=== PATIENT | male | born 1965 | race Caucasian/White ===

== ENCOUNTER 2018-08-12 10:04 | Day surgery (SDC) | payer OTHER ==
[~2018-08-12 10:04] MED LIST: COZAAR100 MG; FORTAMET1000 MG
[2018-08-12] MEDS ORDERED: DICLOFENAC SODI75 MG PO (12:59)
== END 2018-08-12 14:15 | disposition home or self-care (01) ==
LOC: AMB-ENDOS 10:04
DX: K64.8 Other hemorrhoids (principal)

== ENCOUNTER → 2020-01-13 | Outpatient (CLI) | payer OTHER ==
[~2020-01-13] MED LIST changes: +ATACAND16 MG PO; +DICLOFENAC SODI75 MG PO; +FARXIGA10 MG PO; +TRULICITY0.75 MG/0. SQ; +ZOMIG5 MG PO
== END | disposition home or self-care (01) ==
LOC: RAD 16:03
PROVIDERS: ATTEND Surgery
DX: K64.5 Perianal venous thrombosis (principal); K64.4 Residual hemorrhoidal skin tags; K59.04 Chronic idiopathic constipation; K64.2 Third degree hemorrhoids

== ENCOUNTER 2020-01-21 05:59 | Day surgery (SDC) | payer OTHER ==
[2020-01-21] MEDS ORDERED: PERCOCET 5-3251 EACH PO (08:31)
[2020-01-21] MEDS ORDERED: RECTICARE30 GM TOP (08:31)
== END 2020-01-21 14:25 | disposition home or self-care (01) ==
LOC: CIR.AMB 05:59
PROVIDERS: ATTEND Surgery
DX: K64.2 Third degree hemorrhoids (principal); K64.4 Residual hemorrhoidal skin tags; Z20.828 Contact with and (suspected) exposure to other viral communicable diseases